=== PATIENT | female | born 1990 | race Caucasian/White ===

== ENCOUNTER 2023-08-26 16:21 | Inpatient (IN) | payer BC, OTHER ==
[~2023-08-26] VITALS: Ht 180.3 cm; Wt 65.9 kg
[2023-08-26 16:55] LABS: Basophils # (auto) 0 10 ^3/uL (0-0.2); Basophils % (auto) 0.3 % (0.0-2.0); Eosinophils # (auto) 0.1 10 ^3/uL (0-0.8); Eosinophils % (auto) 2.2 % (0.0-7.0); Hematocrit 39.4 % (36.0-46.0); Hemoglobin 12.9 g/dL (12.2-16.2); Lymphocytes # (auto) 1.4 10 ^3/uL (0.4-5.4); Lymphocytes % (auto) 23.1 % (10.0-50.0); Mean Corpuscular Hgb Conc. 32.8 g/dL (32.0-36.0); Mean Corpuscular Volume 91.5 fL (80.0-100.0); Monocytes # (auto) 0.3 10 ^3/uL (0-1.3); Monocytes % (auto) 5.9 % (0.0-12.0); Neutrophils # (auto) 4.1 10 ^3/uL (1.6-8.6); Neutrophils % (auto) 68.5 % (37.0-80.0); Red Blood Cells 4.31 10^6/uL (4.0-5.20); Red Cell Distribution Width 13.4 % (11.8-14.3)
[2023-08-26 17:09] LABS: Albumin 4.3 g/dL (3.2-4.8); Alkaline Phosphatase 47 U/L (46-116); Anion Gap 8 (5-15); Aspartate Aminotransferase 19 U/L (13-40); BUN/Creatinine Ratio 15.5 (10.0-20.0); Blood Urea Nitrogen 13 mg/dL (9-23); Calcium 8.9 mg/dL (8.5-10.1); Carbon Dioxide 25 mmol/L (20-30); Chloride 108 mmol/L (98-107); Glucose 114 mg/dL (74-106); Potassium 3.6 mmol/L (3.5-5.1); Sodium 141 mmol/L (136-145)
[2023-08-26 17:10] LABS: Alanine Aminotransferase < 9 U/L (7-40); Bilirubin, Total 0.5 mg/dL (0.2-1.0); Total Protein 6.4 g/dL (5.7-8.2)
[2023-08-26 17:12] LABS: Beta HCG, Quantitative 0.5 mIU/mL (1.5-4.2)
[2023-08-26 17:15] LABS: Thyroid Stimulating Hormone 1.21 uIU/mL (0.55-4.78)
[2023-08-26] MEDS: SODIUM CHLORIDE 0.9% 1,000 ML IV ONE (19:29)
[2023-08-26] MEDS: ASPirin 81 mg TAB PO ONE (19:32)
[2023-08-26] MEDS ORDERED: ONDANSETRON HCL 4 MG/2 ML VIAL IV PRN (19:45)
[2023-08-26] MEDS ORDERED: MORPHINE SULFATE INJ 2 MG/ml SYRG IV PRN (19:45)
[2023-08-26] MEDS ORDERED: DOCUSATE SOD 100 MG CAP PO PRN (19:45)
[2023-08-26 20:09] LABS: Phosphorus 2.4 mg/dL (2.4-5.1)
[2023-08-26] MEDS: SODIUM CHLORIDE 0.9% 1,000 ML IV SCH (20:29)
[2023-08-26 20:52] VITALS: PULSE 92; RESP 22; O2SAT 99
[2023-08-26 21:08] LABS: Urine Bacteria FEW /hpf (None Seen); Urine Blood Negative /uL (Negative); Urine Clarity HAZY (Clear); Urine Color Colorless (Yellow); Urine Hyaline Cast MOD /lpf (0 - 2); Urine Mucus FEW (None Seen); Urine Protein, UAD Negative (Negative); Urine Specific Gravity 1.016 (1.001-1.035); Urine Urobilinogen Normal (Negative); Urine WBC 4 /hpf (0 - 5)
[2023-08-26 21:21] LABS: Amphetamine Screen, Urine Neg (NEGATIVE); Barbiturate Scree,Urine Neg (NEGATIVE); Benzodiazephine Screen, Urine Neg (NEGATIVE); Cocaine Screen, Urine Neg (NEGATIVE)
[2023-08-26 21:22] LABS: Cannabinoid Screen, Urine Neg (NEGATIVE); Opiate Scree,Urine Neg (NEGATIVE); Phencyclidine Screen, Urine Neg (NEGATIVE)
[2023-08-26] MEDS: METOPROLOL TARTRATE 25 MG TAB PO SCH (21:33)
[2023-08-26 22:39] VITALS: PULSE 85; RESP 16; O2SAT 97
[2023-08-27] VITALS (9 sets, daily range): BP systolic 108–139; BP diastolic 67–96; PULSE 59–84; RESP 18–20; TEMP 36.9; O2SAT 79–98
[2023-08-27] MEDS ORDERED: METH36TA PO (01:23)
[2023-08-27 05:49] LABS: Basophils # (auto) 0 10 ^3/uL (0-0.2); Basophils % (auto) 0.3 % (0.0-2.0); Eosinophils # (auto) 0.2 10 ^3/uL (0-0.8); Eosinophils % (auto) 3.5 % (0.0-7.0); Hematocrit 32.7 % (36.0-46.0); Hemoglobin 11.1 g/dL (12.2-16.2); Lymphocytes % (auto) 34.5 % (10.0-50.0); Mean Corpuscular Hemoglobin 30.8 pg (28.0-32.0); Mean Corpuscular Hgb Conc. 33.9 g/dL (32.0-36.0); Monocytes # (auto) 0.4 10 ^3/uL (0-1.3); Monocytes % (auto) 7.7 % (0.0-12.0); Neutrophils # (auto) 3.1 10 ^3/uL (1.6-8.6); Nucleated Red Blood Cells % 0.1 %; Red Blood Cells 3.59 10^6/uL (4.0-5.20); Red Cell Distribution Width 13.6 % (11.8-14.3); White Blood Cell 5.8 10^3/uL (4.4-10.8)
[2023-08-27 06:08] LABS: Albumin 3.5 g/dL (3.2-4.8); Alkaline Phosphatase 39 U/L (46-116); Anion Gap 4 (5-15); Aspartate Aminotransferase 13 U/L (13-40); BUN/Creatinine Ratio 16.9 (10.0-20.0); Blood Urea Nitrogen 12 mg/dL (9-23); Calcium 8.4 mg/dL (8.7-10.4); Carbon Dioxide 26 mmol/L (20-30); Chloride 111 mmol/L (98-107); Glucose 98 mg/dL (74-106); Potassium 3.6 mmol/L (3.5-5.1); Sodium 141 mmol/L (136-145)
[2023-08-27 06:09] LABS: Bilirubin, Total 0.3 mg/dL (0.2-1.0); Total Protein 5.6 g/dL (5.7-8.2)
[2023-08-27 06:22] LABS: Alanine Aminotransferase < 9 U/L (7-40)
[2023-08-27] MEDS: ASPirin 81 mg TAB PO SCH (09:14)
[2023-08-27] MEDS: ATORVASTATIN 20 MG TAB PO ONE (19:03)
[2023-08-27] MEDS: METHYLPHENIDATE 36 MG PO SCH (21:59)
[2023-08-28] VITALS (9 sets, daily range): BP systolic 113–148; BP diastolic 48–104; PULSE 53–80; RESP 14–20; TEMP 97.8–98.9; O2SAT 96–100
[2023-08-28 06:39] LABS: INR 1.07 (0.9-1.15); Partial Thromboplastin Time 29.2 SEC (24.5-34.5); Prothrombin Time 11.2 sec (9.3-11.8)
[2023-08-28 09:04] LABS: Chloride 110 mmol/L (98-107); Potassium 3.8 mmol/L (3.5-5.1); Sodium 141 mmol/L (136-145)
[2023-08-28 09:05] LABS: Anion Gap 3 (5-15); Calcium 8.6 mg/dL (8.5-10.1); Carbon Dioxide 28 mmol/L (20-30)
[2023-08-28 09:10] LABS: BUN/Creatinine Ratio 11.8 (10.0-20.0); Blood Urea Nitrogen 9 mg/dL (9-23); Glucose 90 mg/dL (74-106)
[2023-08-28] MEDS: LIDOCAINE 2%HCL (LOCAL ANESTH.) INJ 20ML MDV ONE (10:35)
[2023-08-28] MEDS: IODIXANOL 320MG/ML 100ML BTL IV ONE ×2 (10:35→11:30)
[2023-08-28] MEDS: ANGIOMAX 250 MG VIAL IV ONE (10:39)
[2023-08-28] MEDS: SODIUM CHL 0.9% 0 ML ONE (10:40)
[2023-08-28] MEDS: MIDAZOLAM HCL 2MG/2ML 2ml VIAL (1mg/ml) ONE (10:40)
[2023-08-28] MEDS: fentaNYL CITRATE 100 MCG/2 ML VL ONE (10:40)
[2023-08-28] MEDS: HEPARIN SODIUM (PORCINE) 5000 UNITS/ML 1ML VIAL ONE (11:30)
[2023-08-28] MEDS: VERAPAMIL 2.5MG/ML INJ 2ML VIAL IV ONE (11:30)
[2023-08-28] MEDS ORDERED: METO25TA5 PO (13:10)
[2023-08-28] MEDS ORDERED: ATOR20TA PO (13:11)
[2023-08-28] MEDS ORDERED: ASPI-628 PO (13:11)
[2023-08-28] MEDS ORDERED: DILT120T16 PO (13:16)
[2023-08-28] MEDS ORDERED: ATORVASTATIN 20 MG TAB PO SCH (22:00)
== END 2023-08-28 18:38 | disposition home or self-care (01) | DRG 282 ==
LOC: EDBD 16:21 → ER 16:21 → TELE 19:40 → TELE-CENTR 19:40
PROVIDERS: ADMIT Nurse Practitioner Family; ATTEND Family Medicine
PROC: 4A023N7 Measurement of Cardiac Sampling and Pressure, Left Heart, Percutaneous Approach (ICD-10-PCS; principal; 2023-08-28)
PROC: B211YZZ Fluoroscopy of Multiple Coronary Arteries using Other Contrast (ICD-10-PCS; 2023-08-28)
DX: I47.19 Other supraventricular tachycardia (principal); I21.A1 Myocardial infarction type 2; F98.8 Other specified behavioral and emotional disorders with onset usually occurring in childhood and adolescence; Z82.49 Family history of ischemic heart disease and other diseases of the circulatory system; Z80.3 Family history of malignant neoplasm of breast
CPT/HCPCS: 36415; 71046; 80048; 80053; 80307; 81001; 83735; 83880; 84100; 84443; 84484; 84702; 85025; 85379; 85610; 85730; 87086; 93005; 93306; 93458; 99152; G0378; J2250; Q9967